=== PATIENT | female | born 1965 | race Two or more races ===

== ENCOUNTER 2017-02-18 10:45 | Day surgery (SDC) | payer OTHER ==
[2017-02-17 13:20] VITALS: BMI 37.0
--- NOTE | 2017-02-18 09:19 | HP ---
History & Physical Update - History History: No Change - Physical Physical: No Change - Assessment Assessment: No Change - Plan Plan: No Change
[~2017-02-18 10:45] MED LIST: BUPIVACAINE HCL/PF 0.5% (5MG/ML) 10 ML VIAL IJ ONE
[2017-02-18] MEDS ORDERED: MIDAZOLAM HCL 2 MG/2 ML SINGLE DOSE VIAL ONE (12:50)
[2017-02-18] MEDS ORDERED: PROPOFOL 20 ML ONE (13:00)
[2017-02-18] MEDS ORDERED: ROCURONIUM BROMIDE 50 MG/5 ML VIAL ONE (13:00)
[2017-02-18] MEDS ORDERED: DEXAMETHASONE SOD PHOSPHATE 4 MG/1 ML VIAL ONE (13:01)
[2017-02-18] MEDS ORDERED: KETOROLAC TROMETHAMINE 30 MG/1 ML VIAL ONE (13:01)
[2017-02-18] MEDS ORDERED: ceFAZolin SODIUM 1 GM VIAL ONE (13:01)
[2017-02-18] MEDS ORDERED: ceFAZolin SODIUM 1 GM VIAL IVPB ONE (13:12)
[2017-02-18] MEDS ORDERED: BUPIVACAINE HCL/PF 0.5% (5MG/ML) 10 ML VIAL IJ ONE ×2 (13:22)
[2017-02-18] MEDS ORDERED: NEOSTIGMINE METHYLSULFATE 0.5 MG/ML - 10 ML MDV ONE (14:21)
[2017-02-18] MEDS ORDERED: GLYCOPYRROLATE 0.2 MG/1 ML VIAL ONE ×2 (14:21)
[2017-02-18] MEDS ORDERED: PROMETHAZINE HCL 25 MG/1 ML VIAL IVPUSH PRN (14:45)
[2017-02-18] MEDS ORDERED: oxyCODONE HCL 5 MG TABLET PO PRN (14:45)
[2017-02-18] MEDS ORDERED: ONDANSETRON 4 MG/2 ML VIAL IVPUSH PRN (14:45)
--- NOTE | 2017-02-18 14:46 | OP ---
Operative Note - Note: Operative Date: 02/18/17 Pre-Operative Diagnosis: cholecystitis, biliary dyskinesia Operation: Robotic-assisted laparoscopic cholecystectomy Post-Operative Diagnosis: Same as Pre-op Surgeon: Seth Dorsey [employer] Truck Driver: Marjan Thompson Anesthesiologist/ASSISTANT DIRECTOR OF RESIDENCE LIFE: Kem Bartlett Anesthesia: General Specimens Removed: gallbladder Estimated Blood Loss (mls): 3 Fluid Volume Replaced (mls): 800 Operative Report Dictated: Yes
--- NOTE | 2017-02-18 14:47 | SURG ---
Surgery Nurse Wound Care Note Nurse Wound Care: Marjan Thompson PA-C Date of Service: 02/18/17 Diagnosis: cholecystitis, biliary dyskinesia Procedure: Robotic-assisted laparoscopic cholecystectomy I was present for the entirety of the operative procedure. For further detail, please refer to operative report. Visit type - Case Type Case Type: Scheduled Admission - Emergency Emergency Visit: No
[2017-02-18 16:04] VITALS: TEMP 97.8
[2017-02-18] MEDS ORDERED: ONDANSETRON 4 MG/2 ML VIAL ONE (16:08)
[2017-02-18 18:31] VITALS: BP 132/71; PULSE 76
--- NOTE | 2017-02-19 12:13 | OP ---
DATE OF OPERATION: 02/18/2017 PROCEDURE: Robotic-assisted laparoscopic cholecystectomy. PREOPERATIVE DIAGNOSIS: Biliary dyskinesia and symptomatic cholelithiasis. POSTOPERATIVE DIAGNOSIS: Biliary dyskinesia and symptomatic cholelithiasis. SURGEON: Seth Dorsey MD SET UP MACHINIST: SHILO Siegel ANESTHESIA: General endotracheal. FINDINGS AND PROCEDURE: This is a 51-year-old female who presents with a [id number] of right upper quadrant pain occasionally radiating to the back associated with fatty meals. A GI workup initially with CCK HIDA scan revealed gallbladder dyskinesia with an ejection fraction of only 6%. An ultrasound ordered by the undersigned then revealed a gallbladder with two 1.6-cm and 1.3-cm stones , so the patient was advised cholecystectomy, and consent was obtained after discussing the risks, benefits, and alternatives of the procedure. The patient was brought to the operating room and placed in supine position. General endotracheal anesthesia was administered. The abdomen was prepped and draped in the usual sterile fashion. Using 0.25% Marcaine, local anesthesia was administered to the proposed incision sites. The peritoneal cavity was then entered using the Veress needle technique via an 8-mm umbilical incision. Pneumoperitoneum was established. This was followed by insertion of an 8-mm port. The 3D 30-degree laparoscope was inserted, and the peritoneal cavity was carefully inspected and was noted to be free of inadvertent injury to the bowel. Two 8-mm ports were inserted to the right of the umbilicus 8 mm away from each other in a straight line under direct vision. Another 8-mm port was inserted at the left upper quadrant 1 fingerbreadth above the umbilicus and 7 mm away from the umbilical port. The patient was then placed in a steep reverse Trendelenburg left side down position. The robotic arms were docked and the target organ was set. The Prograsp was then inserted at the right lateral most port, and the fenestrated bipolar grasper was inserted at the right midclavicular port. The Endowrist hook dissector connected to the monopolar cautery was inserted at the left upper quadrant port. The undersigned then scrubbed out to commence the console part of the procedure. The gallbladder was noted to be floppy, and the fundus was grasped and retracted superiorly. The infundibulum was grasped and retracted inferolaterally. Using the Firefly technology, the common bile duct was identified as well as the cystic duct. The visceral peritoneum covering the hepatocystic triangle was scored using the Endowrist hook dissector. The cystic duct and cystic artery were carefully skeletonized. After adequate length was achieved, the 2 structures were clipped using the Hem-o-jennifer clip, 3 clips deployed at the cystic duct and 2 clips at the cystic artery. The distal end of the cystic artery was cauterized with the fenestrated bipolar. The 2 structures were then transected using the Endowrist hook dissector leaving 2 clips at the cystic artery and cystic duct stumps. The gallbladder was then resected from its bed in antegrade fashion using Endowrist hook dissector. After this was completed, the left upper quadrant port was switched to an 11-mm port, and the endobag was inserted to retrieve the gallbladder. The robotic arms were undocked. The gallbladder was extracted via the left upper quadrant port. The pneumoperitoneum was evacuated, and all the ports were removed. The wounds were closed with subcuticular Biosyn 4-0 sutures reinforced with Dermabond. The patient was successfully extubated and transferred to the post anesthesia care unit in satisfactory condition. Estimated blood loss was about 3 mL. Wound class clean contaminated. The patient received a gram of Ancef prior to the start of the procedure. Brianna [id number] MTDD
== END 2017-02-18 18:31 | disposition home or self-care (01) ==
LOC: JASU-SURG 10:45
PROVIDERS: ATTEND Surgery
PROC: 8E0W4CZ Robotic Assisted Procedure of Trunk Region, Percutaneous Endoscopic Approach (ICD-10-PCS; 2017-02-18)
PROC: 0FT44ZZ Resection of Gallbladder, Percutaneous Endoscopic Approach (ICD-10-PCS; principal; 2017-02-18 12:00)
DX: K80.20 Calculus of gallbladder without cholecystitis without obstruction (principal); K82.8 Other specified diseases of gallbladder
CPT/HCPCS: 47562; S2900; 88304-TC; 94760